=== PATIENT | male | born 1965 | race Caucasian/White ===

== ENCOUNTER 2017-01-23 07:35 | Emergency (ER) | payer OTHER ==
[~2017-01-23] VITALS: Ht 167.6 cm; Wt 118.2 kg
[~2017-01-23 07:35] MED LIST: ADV250 IH; ALBU8HFA IH; APIX2.5T PO; CITA20TA9 PO; FAMO20 PO; HYDR25TA PO; LISI-662 PO; METF500T4 PO; METO-325 PO; MONT10TA21 PO; OMEP20 PO; SERT50TA12 PO; SIMV20 PO; SOTA80 PO; TRAM50TA4 PO
[2017-01-23] MEDS ORDERED: HYDROCODONE/ACETAMINOPHEN 5-325 MG TABLET PO ONE (08:30)
[2017-01-23] MEDS ORDERED: IBUPROFEN 800 MG TABLET PO ONE (08:30)
[2017-01-23 09:24] VITALS: BP 123/54
== END 2017-01-23 09:24 | disposition home or self-care (01) ==
LOC: EMS 07:36
DX: M54.31 Sciatica, right side (principal); E11.9 Type 2 diabetes mellitus without complications; I10 Essential (primary) hypertension; J45.909 Unspecified asthma, uncomplicated
CPT/HCPCS: 82962; 99283

== ENCOUNTER 2017-04-26 04:58 | Emergency (ER) | payer OTHER ==
[~2017-04-26] VITALS: Ht 167.6 cm; Wt 143.0 kg
[~2017-04-26 04:58] MED LIST changes: +SIMV-260 PO; -SIMV20 PO
[2017-04-26] MEDS ORDERED: IBUP-1547 PO (05:03)
[2017-04-26] MEDS ORDERED: BUDE10.2 IH (05:03)
[2017-04-26] MEDS ORDERED: GABA-531 PO (05:03)
[2017-04-26] MEDS ORDERED: APIX5TAB PO (05:03)
[2017-04-26] MEDS ORDERED: LISI-662 PO (05:03)
[2017-04-26] MEDS ORDERED: SUCR1TAB PO (05:03)
[2017-04-26] MEDS ORDERED: ESCI20TA PO (05:03)
[2017-04-26 05:12] LABS: GLUCOSE,POINT OF CARE 161 MG/DL (70-110)
[2017-04-26] MEDS ORDERED: OxyCODONE HCL/ACETAMINOPHEN 5-325 MG TABLET PO ONE (06:30)
[2017-04-26 06:37] VITALS: BP 142/95
== END 2017-04-26 06:41 | disposition home or self-care (01) ==
LOC: EMS 04:59
DX: Z76.0 Encounter for issue of repeat prescription (principal); M17.12 Unilateral primary osteoarthritis, left knee; I10 Essential (primary) hypertension; E11.9 Type 2 diabetes mellitus without complications; E78.00 Pure hypercholesterolemia, unspecified; J45.909 Unspecified asthma, uncomplicated; I48.91 Unspecified atrial fibrillation
CPT/HCPCS: 82962; 99283

== ENCOUNTER 2017-07-01 08:01 | Emergency (ER) | payer OTHER ==
[~2017-07-01] VITALS: Ht 167.6 cm; Wt 131.8 kg
[~2017-07-01 08:01] MED LIST changes: -APIX2.5T PO; +APIX5TAB PO; +BUDE10.2 IH; -CITA20TA9 PO; +ESCI20TA PO; +GABA-531 PO; -HYDR25TA PO; +IBUP-1547 PO; -OMEP20 PO; +SUCR1TAB PO; -TRAM50TA4 PO
[2017-07-01 08:13] LABS: GLUCOSE,POINT OF CARE 186 MG/DL (70-110)
[2017-07-01] MEDS ORDERED: KETOROLAC TROMETHAMINE 60 MG/2 ML VIAL IM ONE (10:00)
[2017-07-01 10:29] LABS: APPEARANCE,URINE CLEAR (CLEAR); GLUCOSE, URINE (UA) NEGATIVE (NEGATIVE); KETONES,URINE NEGATIVE (NEGATIVE); LEUKOCYTE ESTERASE ,URINE NEGATIVE (NEGATIVE); OCCULT BLOOD,URINE NEGATIVE (NEGATIVE); PROTEIN,URINE NEGATIVE (NEGATIVE)
[2017-07-01 10:36] LABS: RBC,URINE None Seen /HPF (0-2); SQUAMOUS EPITHELIAL CELL,UR Few /LPF (None Seen); WBC,URINE 0-2 /HPF (0-5)
[2017-07-01 11:34] VITALS: BP 121/94
== END 2017-07-01 12:01 | disposition home or self-care (01) ==
LOC: EMS 08:02
DX: S80.12XA Contusion of left lower leg, initial encounter (principal); M54.6 Pain in thoracic spine; M54.5 Low back pain; I48.91 Unspecified atrial fibrillation; J45.909 Unspecified asthma, uncomplicated; E11.9 Type 2 diabetes mellitus without complications; E78.00 Pure hypercholesterolemia, unspecified; I10 Essential (primary) hypertension; Z87.891 Personal history of nicotine dependence; X58.XXXA Exposure to other specified factors, initial encounter; Y93.89 Activity, other specified; Y92.89 Other specified places as the place of occurrence of the external cause; Y99.8 Other external cause status
CPT/HCPCS: 71010; 81001; 82962; 96372; 99285; J1885

== ENCOUNTER 2017-08-22 13:42 | Emergency (ER) | payer OTHER ==
[~2017-08-22] VITALS: Ht 167.6 cm; Wt 141.8 kg
[~2017-08-22 13:42] MED LIST changes: -IBUP-1547 PO; +IBUP-2071 PO; -METO-325 PO; +METO-558 PO
[2017-08-22 13:57] VITALS: BP 127/71
[2017-08-22 14:02] LABS: GLUCOSE,POINT OF CARE 133 MG/DL (70-110)
[2017-08-22] MEDS ORDERED: ACETAMINOPHEN/CODEINE 300-30 MG TABLET PO ONE (14:15)
[2017-08-22] MEDS ORDERED: GENTAMICIN SULFATE 0.3% OPHTHALMIC SOLUTION 5 ML TP ONE (14:15)
== END 2017-08-22 15:44 | disposition home or self-care (01) ==
LOC: EMS 13:43
DX: H60.92 Unspecified otitis externa, left ear (principal); H69.92 Unspecified Eustachian tube disorder, left ear; E11.9 Type 2 diabetes mellitus without complications; I10 Essential (primary) hypertension; E78.00 Pure hypercholesterolemia, unspecified; J45.909 Unspecified asthma, uncomplicated; I48.91 Unspecified atrial fibrillation
CPT/HCPCS: 82962; 99283

== ENCOUNTER → 2018-02-20 | Outpatient (CLI) | payer OTHER ==
[~2018-02-20] VITALS: Ht 167.6 cm; Wt 130.0 kg
[~2018-02-20] MED LIST changes: +ASPI-556 PO; +CYCL5TAB PO; +DIGO-44 PO; +HYDR25TA PO; +MELO-107 PO
[2018-02-20 12:21] VITALS: BP 121/83
== END | disposition home or self-care (01) ==
LOC: SRCNTR 11:15
PROVIDERS: ATTEND Internal Medicine Clinical Cardiac Electrophysiology
DX: Z45.02 Encounter for adjustment and management of automatic implantable cardiac defibrillator (principal); I48.91 Unspecified atrial fibrillation; I11.0 Hypertensive heart disease with heart failure; I50.9 Heart failure, unspecified; E78.5 Hyperlipidemia, unspecified; E11.9 Type 2 diabetes mellitus without complications; E78.00 Pure hypercholesterolemia, unspecified; J45.909 Unspecified asthma, uncomplicated; F20.9 Schizophrenia, unspecified; Z79.01 Long term (current) use of anticoagulants; Z79.82 Long term (current) use of aspirin
CPT/HCPCS: G0463

== ENCOUNTER 2018-06-25 06:43 | Emergency (ER) | payer OTHER ==
[~2018-06-25] VITALS: Ht 167.6 cm; Wt 136.4 kg
[~2018-06-25 06:43] MED LIST changes: -ADV250 IH; -GABA-531 PO; -METF500T4 PO; +METF500T6 PO; -SIMV-260 PO; -SUCR1TAB PO
[2018-06-25 07:03] LABS: GLUCOSE,POINT OF CARE 197 MG/DL (70-110)
[2018-06-25] MEDS ORDERED: PANT40TA25 PO (07:17)
[2018-06-25] MEDS ORDERED: ARIP5TAB8 PO (07:17)
[2018-06-25] MEDS ORDERED: GABA-531 PO (07:17)
[2018-06-25] MEDS ORDERED: OXYC-530 PO (07:17)
[2018-06-25] MEDS ORDERED: SIMV-260 PO (07:17)
[2018-06-25] MEDS ORDERED: COLC0.6T67 PO (07:17)
[2018-06-25] MEDS ORDERED: CEFU250T87 PO (07:17)
[2018-06-25] MEDS ORDERED: IPRATROPIUM BROMIDE 0.5 MG/2.5 ML NEB SOLUTION NEB ONE (08:00)
[2018-06-25] MEDS ORDERED: ALBUTEROL SULFATE 5 MG/ML 20 ML NEB SOLN [BULK] NEB ONE (08:00)
[2018-06-25] MEDS ORDERED: PredniSONE 20 MG TABLET PO ONE (08:00)
[2018-06-25 08:10] LABS: BASOPHILS % (AUTO) 1.5 % (0.0-2.0); EOSINOPHILS % (AUTO) 0.9 % (1.0-6.0); HEMATOCRIT 35.8 % (41-53); HEMOGLOBIN 11.8 g/dL (13.5-17.5); MEAN CORPUSCULAR HEMOGLOBIN 28.8 pg (26.0-34.0); MEAN CORPUSCULAR HGB CONC 32.9 G/dL (31.0-37.0); MEAN CORPUSCULAR VOLUME 87 fL (80-100); MONOCYTES # (AUTO) 0.7 K/uL (0.1-1.0); MONOCYTES % (AUTO) 7.3 % (2.0-9.0); NEUTROPHILS # (AUTO) 6.5 K/uL (1.8-7.7); NEUTROPHILS % (AUTO) 69.3 % (40.0-70.0); PLATELET COUNT (AUTO) 258 K/uL (150-450); RED BLOOD CELL COUNT(AUTO) 4.09 MIL/uL (4.50-5.90); RED CELL DISTRIBUTION WIDTH 14.3 % (11.5-14.5)
[2018-06-25 08:21] LABS: ANION GAP 3 mmol/L (8-16); CALCIUM, TOTAL 8.9 mg/dL (8.8-10.5); CARBON DIOXIDE 33 mmol/L (22-29); CHLORIDE 102 mmol/L (98-107); CREATININE 0.75 mg/dL (0.60-1.30); GLOMERULAR FILTR. RATE CALC > 60 mL/min (>60); GLUCOSE,RANDOM 156 mg/dL (70-110); POTASSIUM 3.9 mmol/L (3.5-5.1); SODIUM SERUM 138 mmol/L (136-145); UREA NITROGEN, BLOOD 17 mg/dL (7-18)
[2018-06-25 08:26] LABS: ALANINE AMINOTRANSFERASE 17 U/L (12-78); ALBUMIN 3.4 g/dL (3.4-5.0); ALKALINE PHOSPHATASE 55 U/L (46-116); ASPARTATE AMINOTRANSFERASE 24 U/L (15-37); BILIRUBIN,TOTAL 0.4 mg/dL (0.1-1.0); CREATINE KINASE, TOTAL 39 U/L (39-308); TOTAL PROTEIN, SERUM 6.4 g/dL (6.4-8.2)
[2018-06-25 08:38] LABS: B-TYPE NATRIURETIC PEPTIDE 75 pg/mL (0-100)
[2018-06-25 09:49] VITALS: BP 114/78
== END 2018-06-25 09:53 | disposition home or self-care (01) ==
LOC: EMS 06:44
DX: J45.909 Unspecified asthma, uncomplicated (principal); R10.31 Right lower quadrant pain; R10.32 Left lower quadrant pain; I48.91 Unspecified atrial fibrillation; E11.9 Type 2 diabetes mellitus without complications; I51.9 Heart disease, unspecified; E78.00 Pure hypercholesterolemia, unspecified; F12.90 Cannabis use, unspecified, uncomplicated; F17.210 Nicotine dependence, cigarettes, uncomplicated; F20.9 Schizophrenia, unspecified; E66.01 Morbid (severe) obesity due to excess calories; Z79.82 Long term (current) use of aspirin; Z79.899 Other long term (current) drug therapy; Z79.84 Long term (current) use of oral hypoglycemic drugs; Z68.42 Body mass index [BMI] 45.0-49.9, adult
CPT/HCPCS: 36415; 71045; 80053; 82550; 82962; 83880; 84484; 85025; 93005; 94644; 99285; 99406; J7512; J7611

== ENCOUNTER 2018-06-25 14:09 | Inpatient (IN) | payer MEDICAID, OTHER ==
[~2018-06-25] VITALS: Ht 167.6 cm; Wt 153.8 kg
[~2018-06-25 14:09] MED LIST changes: +ARIP5TAB8 PO; +CEFU250T87 PO; +COLC0.6T67 PO; +GABA-531 PO; +OXYC-530 PO; +PANT40TA25 PO; +SIMV-260 PO
[2018-06-25 14:24] LABS: GLUCOSE,POINT OF CARE 231 MG/DL (70-110)
[2018-06-25 16:23] LABS: BASOPHILS % (AUTO) 0.7 % (0.0-2.0); EOSINOPHILS % (AUTO) 0.1 % (1.0-6.0); HEMATOCRIT 38.2 % (41-53); HEMOGLOBIN 12.4 g/dL (13.5-17.5); LYMPHOCYTES # (AUTO) 0.9 K/uL (1.0-4.8); LYMPHOCYTES % (AUTO) 8.4 % (22.0-44.0); MEAN CORPUSCULAR HGB CONC 32.4 G/dL (31.0-37.0); MEAN CORPUSCULAR VOLUME 87 fL (80-100); MONOCYTES # (AUTO) 0.4 K/uL (0.1-1.0); MONOCYTES % (AUTO) 3.7 % (2.0-9.0); NEUTROPHILS # (AUTO) 8.9 K/uL (1.8-7.7); PLATELET COUNT (AUTO) 292 K/uL (150-450); RED BLOOD CELL COUNT(AUTO) 4.42 MIL/uL (4.50-5.90); RED CELL DISTRIBUTION WIDTH 14.2 % (11.5-14.5)
[2018-06-25 16:25] LABS: NEUTROPHILS % (AUTO) 87.1 % (40.0-70.0)
[2018-06-25 16:33] LABS: ANION GAP 6 mmol/L (8-16); CALCIUM, TOTAL 9.2 mg/dL (8.8-10.5); CARBON DIOXIDE 32 mmol/L (22-29); CHLORIDE 100 mmol/L (98-107); CREATININE 0.86 mg/dL (0.60-1.30); GLOMERULAR FILTR. RATE CALC > 60 mL/min (>60); GLUCOSE,RANDOM 207 mg/dL (70-110); POTASSIUM 4.4 mmol/L (3.5-5.1); SODIUM SERUM 138 mmol/L (136-145); UREA NITROGEN, BLOOD 18 mg/dL (7-18)
[2018-06-25 16:39] LABS: ALANINE AMINOTRANSFERASE 19 U/L (12-78); ALBUMIN 3.7 g/dL (3.4-5.0); ALKALINE PHOSPHATASE 56 U/L (46-116); ASPARTATE AMINOTRANSFERASE 26 U/L (15-37); BILIRUBIN,TOTAL 0.5 mg/dL (0.1-1.0); TOTAL PROTEIN, SERUM 7.1 g/dL (6.4-8.2)
[2018-06-25] MEDS ORDERED: HALOPERIDOL 5 MG TABLET PO PRN (18:00)
[2018-06-25] MEDS ORDERED: ZOLPIDEM TARTRATE 10 MG TABLET PO PRN (18:00)
[2018-06-25 19:05] LABS: AMPHET/METH SCREEN,URINE NEGATIVE (NEGATIVE); BARBITURATE SCREEN, URINE NEGATIVE (NEGATIVE); BENZODIAZEPINES SCREEN,URINE NEGATIVE (NEGATIVE); CANNABINOID SCREEN,URINE POSITIVE (NEGATIVE); COCAINE SCREEN,URINE NEGATIVE (NEGATIVE); METHADONE SCREEN, URINE NEGATIVE (NEGATIVE); OPIATE SCREEN,URINE NEGATIVE (NEGATIVE)
[2018-06-25 19:07] LABS: PHENCYCLIDINE SCREEN,URINE NEGATIVE (NEGATIVE)
[2018-06-25 19:24] LABS: CHOL/HDL RATIO 5.3 (4.2-7.3); CHOLESTEROL 147 mg/dL (131-200); HDL CHOLESTEROL 28 mg/dL (40-60); LDL CHOL (CALC.) 96 mg/dL (0-130); TRIGLYCERIDES 116 mg/dL (15-150)
[2018-06-25 20:12] VITALS: BP 140/70
[2018-06-25] MEDS ORDERED: MAG HYDROX/AL HYDROX/SIMETH ES 30 ML SUSPENSION UDCUP PO PRN (21:00)
[2018-06-25] MEDS ORDERED: BACITRACIN 28.4 GM OINTMENT TP PRN (21:00)
[2018-06-25] MEDS ORDERED: MAGNESIUM HYDROXIDE SUSPENSION 30 ML UDCUP PO PRN (21:00)
[2018-06-25] MEDS ORDERED: LOPERAMIDE HCL 2 MG CAPSULE PO PRN (21:00)
[2018-06-25] MEDS ORDERED: CloNIDine HCL 0.1 MG TABLET PO PRN (21:00)
[2018-06-25] MEDS ORDERED: PETROLATUM,WHITE 71 GM JELLY TP PRN (21:00)
[2018-06-25] MEDS ORDERED: ACETAMINOPHEN 325 MG TABLET PO PRN (21:00)
[2018-06-25] MEDS ORDERED: ONDANSETRON HCL 4 MG TABLET PO PRN (21:00)
[2018-06-25] MEDS ORDERED: DEXTROSE 50%-WATER 25 GM/50 ML SYRINGE IVP PRN (21:00)
[2018-06-25] MEDS ORDERED: BENZOCAINE/MENTHOL LOZENGE MM PRN (21:00)
[2018-06-25] MEDS: SIMVASTATIN 20 MG TABLET PO SCH (22:06)
[2018-06-25] MEDS: INSULIN LISPRO 100 UNITS/ML SQ PRN (22:12)
[2018-06-25 22:18] LABS: GLUCOMETER DEV NAME(LOC) 3EI C; GLUCOSE,POINT OF CARE 172 MG/DL (70-110)
[2018-06-25 22:46] VITALS: BP 139/70
[2018-06-25] MEDS: IBUPROFEN 600 MG TABLET PO PRN (22:46)
[2018-06-25] MEDS: LORazepam 2 MG TABLET PO PRN (23:55)
[2018-06-26 05:34] LABS: GLUCOMETER DEV NAME(LOC) 3EI C; GLUCOSE,POINT OF CARE 133 MG/DL (70-110)
[2018-06-26] MEDS: MELOXICAM 7.5 MG TABLET PO SCH (06:51)
[2018-06-26] MEDS: MetFORMIN HCL 500 MG TABLET PO SCH ×2 (06:51→17:28)
[2018-06-26] MEDS ORDERED: DOCUSATE SODIUM 100 MG CAPSULE PO SCH (09:00)
[2018-06-26] MEDS: LISINOPRIL 20 MG TABLET PO SCH (09:18)
[2018-06-26] MEDS: ARIPiprazole 5 MG TABLET PO SCH (09:18)
[2018-06-26] MEDS: MONTELUKAST SODIUM 10 MG TABLET PO SCH (09:18)
[2018-06-26] MEDS: HYDROCHLOROTHIAZIDE 25 MG TABLET PO SCH (09:19)
[2018-06-26] MEDS: PANTOPRAZOLE SODIUM 40 MG DR TABLET PO SCH ×2 (09:19→16:28)
[2018-06-26] MEDS: ASPIRIN 81 MG CHEWABLE TABLET PO SCH (09:19)
[2018-06-26] MEDS: COLCHICINE 0.6 MG TABLET PO SCH ×2 (09:20→16:27)
[2018-06-26] MEDS: FAMOTIDINE 20 MG TABLET PO SCH ×2 (09:20→16:27)
[2018-06-26] MEDS: APIXABAN 5 MG TABLET PO SCH ×2 (09:20→16:27)
[2018-06-26] MEDS: SOTALOL HCL 80 MG TABLET PO SCH ×2 (09:21→16:28)
[2018-06-26 09:23] VITALS: BP 118/76
[2018-06-26] MEDS: IBUPROFEN 600 MG TABLET PO PRN ×2 (09:23→23:46)
[2018-06-26] MEDS: BUDESONIDE/FORMOTEROL FUMARATE 160-4.5 MCG/PUFF 6.9 GM INHALER IH SCH ×2 (10:25→16:27)
[2018-06-26 11:34] LABS: GLUCOMETER DEV NAME(LOC) 3EI C; GLUCOSE,POINT OF CARE 119 MG/DL (70-110)
[2018-06-26 16:48] LABS: GLUCOMETER DEV NAME(LOC) 3EI C; GLUCOSE,POINT OF CARE 179 MG/DL (70-110)
[2018-06-26] MEDS: INSULIN LISPRO 100 UNITS/ML SQ PRN ×2 (17:14→21:57)
[2018-06-26 20:42] VITALS: BP 140/70
[2018-06-26] MEDS: SIMVASTATIN 20 MG TABLET PO SCH (21:49)
[2018-06-26 22:08] LABS: GLUCOMETER DEV NAME(LOC) 3EI C; GLUCOSE,POINT OF CARE 146 MG/DL (70-110)
[2018-06-26 23:46] VITALS: BP 134/85
[2018-06-26] MEDS: LORazepam 2 MG TABLET PO PRN (23:46)
[2018-06-27 05:39] LABS: GLUCOMETER DEV NAME(LOC) 3EI C; GLUCOSE,POINT OF CARE 158 MG/DL (70-110)
[2018-06-27] MEDS: MELOXICAM 7.5 MG TABLET PO SCH (06:52)
[2018-06-27] MEDS: MetFORMIN HCL 500 MG TABLET PO SCH (06:52)
[2018-06-27] MEDS: INSULIN LISPRO 100 UNITS/ML SQ PRN (07:26)
[2018-06-27] MEDS: ARIPiprazole 5 MG TABLET PO SCH (09:27)
[2018-06-27] MEDS: HYDROCHLOROTHIAZIDE 25 MG TABLET PO SCH (09:27)
[2018-06-27] MEDS: MONTELUKAST SODIUM 10 MG TABLET PO SCH (09:28)
[2018-06-27] MEDS: ASPIRIN 81 MG CHEWABLE TABLET PO SCH (09:28)
[2018-06-27] MEDS: LISINOPRIL 20 MG TABLET PO SCH (09:28)
[2018-06-27] MEDS: SOTALOL HCL 80 MG TABLET PO SCH (09:29)
[2018-06-27] MEDS: PANTOPRAZOLE SODIUM 40 MG DR TABLET PO SCH (09:29)
[2018-06-27] MEDS: COLCHICINE 0.6 MG TABLET PO SCH (09:30)
[2018-06-27] MEDS: APIXABAN 5 MG TABLET PO SCH (09:30)
[2018-06-27] MEDS: FAMOTIDINE 20 MG TABLET PO SCH (09:30)
[2018-06-27] MEDS: BUDESONIDE/FORMOTEROL FUMARATE 160-4.5 MCG/PUFF 6.9 GM INHALER IH SCH (09:34)
[2018-06-27 09:58] VITALS: BP 128/77
[2018-06-27] MEDS: IBUPROFEN 600 MG TABLET PO PRN (09:58)
[2018-06-27] MEDS ORDERED: ASPI-1182 PO (10:37)
[2018-06-27] MEDS ORDERED: PANT40TA25 PO (10:53)
[2018-06-27 11:44] LABS: GLUCOMETER DEV NAME(LOC) 3EI C; GLUCOSE,POINT OF CARE 140 MG/DL (70-110)
== END 2018-06-27 12:30 | disposition home or self-care (01) | DRG 750 ==
LOC: EMS 14:10 → 3EI 18:34
PROVIDERS: ADMIT Psychiatry & Neurology Psychiatry; ATTEND Psychiatry & Neurology Psychiatry
DX: F25.9 Schizoaffective disorder, unspecified (principal); Z68.43 Body mass index [BMI] 50.0-59.9, adult; I10 Essential (primary) hypertension; I48.91 Unspecified atrial fibrillation; J45.909 Unspecified asthma, uncomplicated; E78.00 Pure hypercholesterolemia, unspecified; G89.29 Other chronic pain; M25.569 Pain in unspecified knee; E11.9 Type 2 diabetes mellitus without complications; F12.90 Cannabis use, unspecified, uncomplicated; I25.10 Atherosclerotic heart disease of native coronary artery without angina pectoris; E78.5 Hyperlipidemia, unspecified; K21.9 Gastro-esophageal reflux disease without esophagitis; F41.9 Anxiety disorder, unspecified; B19.20 Unspecified viral hepatitis C without hepatic coma; F17.200 Nicotine dependence, unspecified, uncomplicated; J42 Unspecified chronic bronchitis; K42.9 Umbilical hernia without obstruction or gangrene; G47.00 Insomnia, unspecified; F32.9 Major depressive disorder, single episode, unspecified; E66.9 Obesity, unspecified; Z56.0 Unemployment, unspecified; Z79.01 Long term (current) use of anticoagulants; Z79.899 Other long term (current) drug therapy
CPT/HCPCS: 87081; 99285; G0480

== ENCOUNTER 2021-04-17 16:02 | Inpatient (IN) | payer MEDICAID, OTHER ==
[~2021-04-17] VITALS: Ht 160 cm; Wt 135.0 kg
[~2021-04-17 16:02] MED LIST changes: -ALBU8HFA IH; +ARIP5TAB37 PO; -ARIP5TAB8 PO; +ASPI-1444 PO; -ASPI-556 PO; -CEFU250T87 PO; -COLC0.6T67 PO; +COLC0.6T73 PO; -CYCL5TAB PO; -DIGO-44 PO; -ESCI20TA PO; -GABA-531 PO; -HYDR25TA PO; +HYDR25TA2 PO; -IBUP-2071 PO; -LISI-662 PO; +LISI-894 PO; +METF-960 PO; -METF500T6 PO; -METO-558 PO; +MONT-35 PO; -MONT10TA21 PO; -OXYC-530 PO; +PANT-31 PO; -PANT40TA25 PO; -SERT50TA12 PO
[2021-04-17] MEDS ORDERED: LIDOCAINE 5% TRANSDERMAL PATCH TD ONE (16:45)
[2021-04-17] MEDS ORDERED: ACETAMINOPHEN 325 MG TABLET PO ONE (16:45)
[2021-04-17 17:25] LABS: BASOPHILS % (AUTO) 0.5 % (0.0-2.0); EOSINOPHILS % (AUTO) 1.7 % (1.0-6.0); HEMATOCRIT 44.4 % (41-53); HEMOGLOBIN 14.3 g/dL (13.5-17.5); LYMPHOCYTES # (AUTO) 1.2 K/uL (1.0-4.8); LYMPHOCYTES % (AUTO) 14.5 % (22.0-44.0); MEAN CORPUSCULAR HEMOGLOBIN 27.9 pg (26.0-34.0); MEAN CORPUSCULAR HGB CONC 32.2 G/dL (31.0-37.0); MEAN CORPUSCULAR VOLUME 87 fL (80-100); MONOCYTES # (AUTO) 0.7 K/uL (0.1-1.0); MONOCYTES % (AUTO) 7.9 % (2.0-9.0); NEUTROPHILS # (AUTO) 6.3 K/uL (1.8-7.7); NEUTROPHILS % (AUTO) 75.4 % (40.0-70.0); PLATELET COUNT (AUTO) 261 K/uL (150-450); RED BLOOD CELL COUNT(AUTO) 5.11 MIL/uL (4.50-5.90); RED CELL DISTRIBUTION WIDTH 13.6 % (11.5-14.5)
[2021-04-17] MEDS ORDERED: HALOPERIDOL 5 MG TABLET PO ONE (17:30)
[2021-04-17 17:34] LABS: ANION GAP 5 mmol/L (8-16); CALCIUM, TOTAL 8.5 mg/dL (8.8-10.5); CARBON DIOXIDE 33 mmol/L (22-29); CHLORIDE 103 mmol/L (98-107); CREATININE 0.74 mg/dL (0.60-1.30); GLOMERULAR FILTR. RATE CALC > 60 mL/min (>60); GLUCOSE,RANDOM 102 mg/dL (70-110); POTASSIUM 3.9 mmol/L (3.5-5.1); SODIUM SERUM 141 mmol/L (136-145); UREA NITROGEN, BLOOD 16 mg/dL (7-18)
[2021-04-17 17:40] LABS: ALANINE AMINOTRANSFERASE 11 U/L (12-78); ALBUMIN 3.6 g/dL (3.4-5.0); ALKALINE PHOSPHATASE 90 U/L (46-116); ASPARTATE AMINOTRANSFERASE 16 U/L (15-37); BILIRUBIN,TOTAL 0.5 mg/dL (0.1-1.0); TOTAL PROTEIN, SERUM 7.3 g/dL (6.4-8.2)
[2021-04-17 18:25] LABS: COVID AG,FIA SOURCE NASOPHARYNGEAL
[2021-04-17] MEDS ORDERED: 0.9% SODIUM CHLORIDE 10 ML SYRINGE IVP PRN (19:00)
[2021-04-17] MEDS ORDERED: ONDANSETRON HCL 4 MG/2 ML VIAL IVP PRN ×2 (19:00→19:15)
[2021-04-17] MEDS ORDERED: ACETAMINOPHEN 325 MG TABLET PO PRN (19:00)
[2021-04-17] MEDS ORDERED: INSULIN LISPRO 100 UNITS/ML SQ PRN (19:30)
[2021-04-17] MEDS ORDERED: DEXTROSE 50%-WATER 25 GM/50 ML SYRINGE IVP PRN (19:30)
[2021-04-17 19:55] LABS: HEMOGLOBIN A1C 6.6 % (3.8-5.6)
[2021-04-17 20:03] LABS: THYROID STIMULATING HORMONE 1.83 uIU/mL (0.36-3.74)
[2021-04-17 20:09] VITALS: BP 128/53
[2021-04-17 21:02] LABS: GLUCOMETER DEV NAME(LOC) 6N.1; GLUCOSE,POINT OF CARE 107 MG/DL (70-110)
[2021-04-18 04:25] VITALS: BP 110/52
[2021-04-18 07:23] LABS: GLUCOMETER DEV NAME(LOC) 6S.1; GLUCOSE,POINT OF CARE 126 MG/DL (70-110)
[2021-04-18 08:18] VITALS: BP 112/68
[2021-04-18] MEDS: SOTALOL HCL 80 MG TABLET PO SCH ×2 (08:54→21:00)
[2021-04-18] MEDS: PANTOPRAZOLE SODIUM 40 MG DR TABLET PO SCH ×2 (08:55→20:59)
[2021-04-18] MEDS: ARIPiprazole 5 MG TABLET PO SCH (08:55)
[2021-04-18] MEDS: ASPIRIN 81 MG DR TABLET PO SCH (08:55)
[2021-04-18] MEDS: LISINOPRIL 20 MG TABLET PO SCH (08:56)
[2021-04-18] MEDS: MONTELUKAST SODIUM 10 MG TABLET PO SCH (08:56)
[2021-04-18] MEDS: APIXABAN 5 MG TABLET PO SCH ×2 (08:57→21:00)
[2021-04-18] MEDS: COLCHICINE 0.6 MG TABLET PO SCH ×2 (08:58→21:00)
[2021-04-18] MEDS: HYDROCHLOROTHIAZIDE 25 MG TABLET PO SCH (08:59)
[2021-04-18] MEDS: BUDESONIDE/FORMOTEROL FUMARATE 160-4.5 MCG/PUFF 10.2 GM INHALER IH SCH ×2 (08:59→20:59)
[2021-04-18] MEDS ORDERED: ENOXAPARIN SODIUM 40 MG/0.4 ML PF SYRINGE SQ SCH (09:00)
[2021-04-18] MEDS: FAMOTIDINE 20 MG TABLET PO SCH ×2 (09:41→21:00)
[2021-04-18] MEDS: ACETAMINOPHEN 325 MG TABLET PO PRN ×2 (09:42→15:24)
[2021-04-18] MEDS ORDERED: LORazepam 2 MG TABLET PO PRN (10:00)
[2021-04-18] MEDS ORDERED: HALOPERIDOL 5 MG TABLET PO PRN (10:00)
[2021-04-18] MEDS: RisperiDONE 2 MG TABLET PO SCH ×2 (11:12→21:00)
[2021-04-18 13:43] LABS: GLUCOMETER DEV NAME(LOC) 6S.1; GLUCOSE,POINT OF CARE 112 MG/DL (70-110)
[2021-04-18 18:24] LABS: AMPHET/METH SCREEN,URINE POSITIVE (NEGATIVE); BARBITURATE SCREEN, URINE NEGATIVE (NEGATIVE); BENZODIAZEPINES SCREEN,URINE NEGATIVE (NEGATIVE); CANNABINOID SCREEN,URINE POSITIVE (NEGATIVE); COCAINE SCREEN,URINE NEGATIVE (NEGATIVE); METHADONE SCREEN, URINE NEGATIVE (NEGATIVE); OPIATE SCREEN,URINE NEGATIVE (NEGATIVE); PHENCYCLIDINE SCREEN,URINE NEGATIVE (NEGATIVE)
[2021-04-18 19:22] VITALS: BP 116/87
[2021-04-18] MEDS: SIMVASTATIN 20 MG TABLET PO SCH (21:00)
[2021-04-18 22:30] LABS: GLUCOMETER DEV NAME(LOC) 6N.1; GLUCOSE,POINT OF CARE 173 MG/DL (70-110)
[2021-04-19 05:30] VITALS: BP 124/77
[2021-04-19 06:26] LABS: GLUCOMETER DEV NAME(LOC) 6N.1; GLUCOSE,POINT OF CARE 111 MG/DL (70-110)
[2021-04-19 07:35] VITALS: BP 135/86
[2021-04-19] MEDS: ACETAMINOPHEN 325 MG TABLET PO PRN ×2 (08:00→20:12)
[2021-04-19] MEDS: BUDESONIDE/FORMOTEROL FUMARATE 160-4.5 MCG/PUFF 10.2 GM INHALER IH SCH ×2 (08:00→20:11)
[2021-04-19] MEDS: ASPIRIN 81 MG DR TABLET PO SCH (08:01)
[2021-04-19] MEDS: ARIPiprazole 5 MG TABLET PO SCH (08:01)
[2021-04-19] MEDS: SOTALOL HCL 80 MG TABLET PO SCH ×2 (08:01→20:09)
[2021-04-19] MEDS: MONTELUKAST SODIUM 10 MG TABLET PO SCH (08:01)
[2021-04-19] MEDS: COLCHICINE 0.6 MG TABLET PO SCH ×2 (08:02→20:10)
[2021-04-19] MEDS: FAMOTIDINE 20 MG TABLET PO SCH ×2 (08:02→20:11)
[2021-04-19] MEDS: RisperiDONE 2 MG TABLET PO SCH ×2 (08:02→20:10)
[2021-04-19] MEDS: APIXABAN 5 MG TABLET PO SCH ×2 (08:02→20:11)
[2021-04-19] MEDS: PANTOPRAZOLE SODIUM 40 MG DR TABLET PO SCH ×2 (08:02→20:11)
[2021-04-19] MEDS: LISINOPRIL 20 MG TABLET PO SCH (08:02)
[2021-04-19] MEDS: HYDROCHLOROTHIAZIDE 25 MG TABLET PO SCH (08:04)
[2021-04-19 12:46] LABS: GLUCOMETER DEV NAME(LOC) 6N.1; GLUCOSE,POINT OF CARE 132 MG/DL (70-110)
[2021-04-19 18:11] LABS: GLUCOMETER DEV NAME(LOC) 6N.1; GLUCOSE,POINT OF CARE 102 MG/DL (70-110)
[2021-04-19] MEDS: SIMVASTATIN 20 MG TABLET PO SCH (20:11)
[2021-04-19 20:40] VITALS: BP 120/61
[2021-04-19 23:48] LABS: GLUCOMETER DEV NAME(LOC) 6S.1; GLUCOSE,POINT OF CARE 126 MG/DL (70-110)
[2021-04-20 00:32] VITALS: BP 113/64
[2021-04-20 05:25] LABS: GLUCOMETER DEV NAME(LOC) 6N.1; GLUCOSE,POINT OF CARE 108 MG/DL (70-110)
[2021-04-20 05:30] VITALS: BP 117/70
[2021-04-20 07:58] VITALS: BP 111/70
[2021-04-20] MEDS: SOTALOL HCL 80 MG TABLET PO SCH (08:17)
[2021-04-20] MEDS: MONTELUKAST SODIUM 10 MG TABLET PO SCH (08:17)
[2021-04-20] MEDS: RisperiDONE 2 MG TABLET PO SCH (08:17)
[2021-04-20] MEDS: APIXABAN 5 MG TABLET PO SCH (08:19)
[2021-04-20] MEDS: ASPIRIN 81 MG DR TABLET PO SCH (08:19)
[2021-04-20] MEDS: ARIPiprazole 5 MG TABLET PO SCH (08:19)
[2021-04-20] MEDS: COLCHICINE 0.6 MG TABLET PO SCH (08:19)
[2021-04-20] MEDS: FAMOTIDINE 20 MG TABLET PO SCH (08:20)
[2021-04-20] MEDS: HYDROCHLOROTHIAZIDE 25 MG TABLET PO SCH (08:20)
[2021-04-20] MEDS: PANTOPRAZOLE SODIUM 40 MG DR TABLET PO SCH (08:21)
[2021-04-20] MEDS: LISINOPRIL 20 MG TABLET PO SCH (08:21)
[2021-04-20] MEDS: BUDESONIDE/FORMOTEROL FUMARATE 160-4.5 MCG/PUFF 10.2 GM INHALER IH SCH (08:23)
[2021-04-20] MEDS ORDERED: RISP2TAB45 PO (12:35)
[2021-04-20 13:09] LABS: GLUCOMETER DEV NAME(LOC) 6N.1; GLUCOSE,POINT OF CARE 111 MG/DL (70-110)
== END 2021-04-20 13:56 | DRG 885 ==
LOC: EMS 16:02 → 6S 18:53
PROVIDERS: ADMIT Internal Medicine; ATTEND Internal Medicine
DX: F20.9 Schizophrenia, unspecified (principal); R45.851 Suicidal ideations; I48.20 Chronic atrial fibrillation, unspecified; Z68.43 Body mass index [BMI] 50.0-59.9, adult; E11.9 Type 2 diabetes mellitus without complications; E66.01 Morbid (severe) obesity due to excess calories; E78.5 Hyperlipidemia, unspecified; J45.909 Unspecified asthma, uncomplicated; E78.00 Pure hypercholesterolemia, unspecified; Z83.3 Family history of diabetes mellitus; F12.90 Cannabis use, unspecified, uncomplicated; B19.20 Unspecified viral hepatitis C without hepatic coma; I25.10 Atherosclerotic heart disease of native coronary artery without angina pectoris; Z91.5 Personal history of self-harm; F17.210 Nicotine dependence, cigarettes, uncomplicated; Z79.01 Long term (current) use of anticoagulants; Z79.899 Other long term (current) drug therapy; I10 Essential (primary) hypertension; Z20.822 Contact with and (suspected) exposure to COVID-19
CPT/HCPCS: 71045; 80053; 82962; 83036; 84443; 84484; 85025; 93005; 99285; G0480; 36415-L1; 36415-TC

== ENCOUNTER 2022-11-06 18:28 | Inpatient (IN) | payer OTHER ==
[~2022-11-06] VITALS: Ht 167.6 cm; Wt 121.3 kg
[~2022-11-06 18:28] MED LIST changes: -MELO-107 PO; +MELO-381 PO; +METF-1211 PO; -METF-960 PO; +RISP2TAB45 PO
[2022-11-06 21:31] LABS: BASOPHILS % (AUTO) 0.6 % (0.0-2.0); EOSINOPHILS % (AUTO) 1.2 % (1.0-6.0); HEMATOCRIT 48.4 % (41-53); HEMOGLOBIN 15.5 g/dL (13.5-17.5); LYMPHOCYTES # (AUTO) 1.4 K/uL (1.0-4.8); LYMPHOCYTES % (AUTO) 19.5 % (22.0-44.0); MEAN CORPUSCULAR HGB CONC 31.9 G/dL (31.0-37.0); MEAN CORPUSCULAR VOLUME 88 fL (80-100); MONOCYTES # (AUTO) 0.6 K/uL (0.1-1.0); MONOCYTES % (AUTO) 7.6 % (2.0-9.0); NEUTROPHILS # (AUTO) 5.2 K/uL (1.8-7.7); NEUTROPHILS % (AUTO) 71.1 % (40.0-70.0); PLATELET COUNT (AUTO) 324 K/uL (150-450); RED BLOOD CELL COUNT(AUTO) 5.53 MIL/uL (4.50-5.90); RED CELL DISTRIBUTION WIDTH 14.3 % (11.5-14.5)
[2022-11-06 21:36] LABS: GLUCOSE,POINT OF CARE 118 MG/DL (70-110)
[2022-11-06 21:44] LABS: ANION GAP 3 mmol/L (8-16); CALCIUM, TOTAL 9.1 mg/dL (8.8-10.5); CARBON DIOXIDE 32 mmol/L (22-29); CHLORIDE 103 mmol/L (98-107); GLUCOSE,RANDOM 105 mg/dL (70-110); POTASSIUM 4.3 mmol/L (3.5-5.1); SODIUM SERUM 138 mmol/L (136-145); UREA NITROGEN, BLOOD 19 mg/dL (7-18)
[2022-11-06 21:47] LABS: GLOMERULAR FILTR. RATE CALC > 60 mL/min (>60)
[2022-11-06 21:49] LABS: B-TYPE NATRIURETIC PEPTIDE 17 pg/mL (0-100)
[2022-11-06 21:52] LABS: PROTHROMBIN TIME 10.9 SEC (9.4-11.6)
[2022-11-06 22:08] LABS: ALANINE AMINOTRANSFERASE 17 U/L (12-78); ALBUMIN 3.8 g/dL (3.4-5.0); ALKALINE PHOSPHATASE 63 U/L (46-116); ASPARTATE AMINOTRANSFERASE 25 U/L (15-37); BILIRUBIN,TOTAL 0.4 mg/dL (0.1-1.0); CREATINE KINASE, TOTAL ONLY 138 U/L (39-308); TOTAL PROTEIN, SERUM 7.3 g/dL (6.4-8.2)
[2022-11-07] MEDS ORDERED: HydrALAZINE HCL 20 MG/ML VIAL IVP PRN
[2022-11-07] MEDS ORDERED: IPRATROPIUM BROMIDE 0.5 MG/2.5 ML NEB SOLUTION NEB PRN
[2022-11-07] MEDS ORDERED: ALBUTEROL SULFATE 2.5 MG/0.5 ML NEB SOLUTION NEB PRN
[2022-11-07] MEDS ORDERED: ONDANSETRON HCL 4 MG/2 ML VIAL IVP PRN
[2022-11-07] MEDS ORDERED: ACETAMINOPHEN 325 MG TABLET PO PRN
[2022-11-07 00:47] LABS: COVID AG,FIA SOURCE NASOPHARYNGEAL
[2022-11-07 02:37] LABS: APPEARANCE,URINE CLEAR (CLEAR); BILIRUBIN,URINE NEGATIVE (NEGATIVE); GLUCOSE, URINE (UA) NEGATIVE (NEGATIVE); KETONES,URINE NEGATIVE (NEGATIVE); LEUKOCYTE ESTERASE ,URINE SMALL (NEGATIVE); NITRATE,URINE NEGATIVE (NEGATIVE); OCCULT BLOOD,URINE NEGATIVE (NEGATIVE); PROTEIN,URINE TRACE mg/dL (NEGATIVE); SPECIFIC GRAVITIY, URINE 1.029 (1.003-1.030); UROBILINOGEN,URINE <=1.0 mg/dL (<=1.0)
[2022-11-07 02:51] LABS: RBC,URINE 0-2 /HPF (0-2)
[2022-11-07 02:52] LABS: BACTERIA,URINE Few /HPF (None Seen); SQUAMOUS EPITHELIAL CELL,UR Few /LPF (None Seen)
[2022-11-07 08:34] VITALS: BP 126/83
[2022-11-07] MEDS: PANTOPRAZOLE SODIUM 40 MG DR TABLET PO SCH ×2 (09:06→20:16)
[2022-11-07] MEDS: ARIPiprazole 5 MG TABLET PO SCH (09:06)
[2022-11-07] MEDS: FAMOTIDINE 20 MG TABLET PO SCH ×2 (09:07→20:17)
[2022-11-07] MEDS: MetFORMIN HCL 500 MG TABLET PO SCH ×2 (09:07→17:49)
[2022-11-07] MEDS: LISINOPRIL 20 MG TABLET PO SCH (09:07)
[2022-11-07] MEDS: HYDROCHLOROTHIAZIDE 25 MG TABLET PO SCH (09:08)
[2022-11-07] MEDS: ASPIRIN 81 MG DR TABLET PO SCH (09:08)
[2022-11-07] MEDS: MONTELUKAST SODIUM 10 MG TABLET PO SCH (09:08)
[2022-11-07] MEDS: BUDESONIDE/FORMOTEROL FUMARATE 160-4.5 MCG/PUFF 10.2 GM INHALER IH SCH ×2 (09:09→20:47)
[2022-11-07] MEDS: APIXABAN 5 MG TABLET PO SCH ×2 (09:10→20:17)
[2022-11-07] MEDS: COLCHICINE 0.6 MG TABLET PO SCH ×2 (09:10→20:16)
[2022-11-07] MEDS: RisperiDONE 2 MG TABLET PO SCH ×2 (09:10→20:16)
[2022-11-07] MEDS: SOTALOL HCL 80 MG TABLET PO SCH ×2 (09:11→20:16)
[2022-11-07] MEDS ORDERED: INFLUENZA VIRUS VACCINE QVS 2022-23 (6MO+)/PF 60 MCG/0.5 ML SYRINGE IM. ONE (10:30)
[2022-11-07] MEDS ORDERED: PNEUMOCOCCAL VACCINE POLYVALENT 0.5 ML VIAL [PPSV23] IM. ONE (10:30)
[2022-11-07 15:45] VITALS: BP 111/77
[2022-11-07 20:11] LABS: GLUCOMETER DEV NAME(LOC) 6N.1; GLUCOSE,POINT OF CARE 136 MG/DL (70-110)
[2022-11-07] MEDS: SIMVASTATIN 20 MG TABLET PO SCH (20:16)
[2022-11-07 20:33] VITALS: BP 114/73
[2022-11-08] MEDS ORDERED: HEPARIN SODIUM,PORCINE 5,000 UNITS/ML VIAL SQ SCH
[2022-11-08 05:36] VITALS: BP 103/62
[2022-11-08 08:03] VITALS: BP 120/60
[2022-11-08] MEDS: ARIPiprazole 5 MG TABLET PO SCH (08:13)
[2022-11-08] MEDS: FAMOTIDINE 20 MG TABLET PO SCH ×2 (08:13→22:50)
[2022-11-08] MEDS: MetFORMIN HCL 500 MG TABLET PO SCH ×2 (08:13→18:53)
[2022-11-08] MEDS: LISINOPRIL 20 MG TABLET PO SCH (08:13)
[2022-11-08] MEDS: ASPIRIN 81 MG DR TABLET PO SCH (08:13)
[2022-11-08] MEDS: PANTOPRAZOLE SODIUM 40 MG DR TABLET PO SCH ×2 (08:13→22:50)
[2022-11-08] MEDS: MONTELUKAST SODIUM 10 MG TABLET PO SCH (08:14)
[2022-11-08] MEDS: HYDROCHLOROTHIAZIDE 25 MG TABLET PO SCH (08:14)
[2022-11-08] MEDS: RisperiDONE 2 MG TABLET PO SCH ×2 (08:14→22:51)
[2022-11-08] MEDS: COLCHICINE 0.6 MG TABLET PO SCH ×2 (08:15→22:51)
[2022-11-08] MEDS: SOTALOL HCL 80 MG TABLET PO SCH ×2 (08:15→22:51)
[2022-11-08] MEDS: BUDESONIDE/FORMOTEROL FUMARATE 160-4.5 MCG/PUFF 10.2 GM INHALER IH SCH (08:16)
[2022-11-08] MEDS: APIXABAN 5 MG TABLET PO SCH ×2 (08:16→22:50)
[2022-11-08 11:00] LABS: HEMOGLOBIN A1C 6.8 % (3.8-5.6)
[2022-11-08 11:10] LABS: ANION GAP 6 mmol/L (8-16); CALCIUM, TOTAL 9.1 mg/dL (8.8-10.5); CARBON DIOXIDE 28 mmol/L (22-29); CHLORIDE 100 mmol/L (98-107); CHOL/HDL RATIO 5.9 (4.2-7.3); CHOLESTEROL 153 mg/dL (131-200); CREATININE 0.91 mg/dL (0.60-1.30); GLUCOSE,RANDOM 115 mg/dL (70-110); HDL CHOLESTEROL 26 mg/dL (40-60); LDL CHOL (CALC.) 82 mg/dL (0-130); POTASSIUM 4.1 mmol/L (3.5-5.1); SODIUM SERUM 134 mmol/L (136-145); TRIGLYCERIDES 227 mg/dL (15-150); UREA NITROGEN, BLOOD 20 mg/dL (7-18)
[2022-11-08 11:15] LABS: GLOMERULAR FILTR. RATE CALC > 60 mL/min (>60)
[2022-11-08 15:30] VITALS: BP 121/76
[2022-11-08 20:05] VITALS: BP 103/65
[2022-11-08] MEDS: SIMVASTATIN 20 MG TABLET PO SCH (22:50)
[2022-11-09 06:08] VITALS: BP 101/56
[2022-11-09 08:58] VITALS: BP 126/70
[2022-11-09] MEDS: ASPIRIN 81 MG DR TABLET PO SCH (09:08)
[2022-11-09] MEDS: PANTOPRAZOLE SODIUM 40 MG DR TABLET PO SCH ×2 (09:08→20:44)
[2022-11-09] MEDS: COLCHICINE 0.6 MG TABLET PO SCH ×2 (09:09→20:41)
[2022-11-09] MEDS: HYDROCHLOROTHIAZIDE 25 MG TABLET PO SCH (09:09)
[2022-11-09] MEDS: SOTALOL HCL 80 MG TABLET PO SCH ×2 (09:10→20:42)
[2022-11-09] MEDS: RisperiDONE 2 MG TABLET PO SCH ×2 (09:10→20:42)
[2022-11-09] MEDS: MONTELUKAST SODIUM 10 MG TABLET PO SCH (09:10)
[2022-11-09] MEDS: APIXABAN 5 MG TABLET PO SCH ×2 (09:10→20:41)
[2022-11-09] MEDS: MetFORMIN HCL 500 MG TABLET PO SCH ×2 (09:10→17:18)
[2022-11-09] MEDS: BUDESONIDE/FORMOTEROL FUMARATE 160-4.5 MCG/PUFF 10.2 GM INHALER IH SCH ×2 (09:11→21:00)
[2022-11-09] MEDS: LISINOPRIL 20 MG TABLET PO SCH (09:11)
[2022-11-09] MEDS: FAMOTIDINE 20 MG TABLET PO SCH ×2 (09:11→20:42)
[2022-11-09] MEDS: ARIPiprazole 5 MG TABLET PO SCH (10:36)
[2022-11-09 10:46] LABS: BASOPHILS % (AUTO) 0.6 % (0.0-2.0); EOSINOPHILS % (AUTO) 0.4 % (1.0-6.0); HEMATOCRIT 49.8 % (41-53); HEMOGLOBIN 15.9 g/dL (13.5-17.5); LYMPHOCYTES # (AUTO) 1.1 K/uL (1.0-4.8); LYMPHOCYTES % (AUTO) 18.1 % (22.0-44.0); MEAN CORPUSCULAR HEMOGLOBIN 27.7 pg (26.0-34.0); MEAN CORPUSCULAR HGB CONC 31.9 G/dL (31.0-37.0); MEAN CORPUSCULAR VOLUME 87 fL (80-100); MONOCYTES # (AUTO) 0.6 K/uL (0.1-1.0); MONOCYTES % (AUTO) 10.3 % (2.0-9.0); NEUTROPHILS # (AUTO) 4.3 K/uL (1.8-7.7); NEUTROPHILS % (AUTO) 70.6 % (40.0-70.0); PLATELET COUNT (AUTO) 293 K/uL (150-450); RED BLOOD CELL COUNT(AUTO) 5.73 MIL/uL (4.50-5.90); RED CELL DISTRIBUTION WIDTH 13.9 % (11.5-14.5)
[2022-11-09] MEDS ORDERED: PERFLUTREN PROTEIN-A MICROSPHERES 0.22 MG/ML 3 ML VIAL IVP ONE (11:30)
[2022-11-09 12:58] VITALS: BP 90/55
[2022-11-09 16:58] VITALS: BP 106/64
[2022-11-09 20:38] VITALS: BP 108/68
[2022-11-09] MEDS: SIMVASTATIN 20 MG TABLET PO SCH (20:41)
[2022-11-10 07:54] VITALS: BP 120/80
[2022-11-10] MEDS: LISINOPRIL 20 MG TABLET PO SCH (09:02)
[2022-11-10] MEDS: FAMOTIDINE 20 MG TABLET PO SCH ×2 (09:02→21:29)
[2022-11-10] MEDS: PANTOPRAZOLE SODIUM 40 MG DR TABLET PO SCH ×2 (09:02→21:27)
[2022-11-10] MEDS: MONTELUKAST SODIUM 10 MG TABLET PO SCH (09:03)
[2022-11-10] MEDS: RisperiDONE 2 MG TABLET PO SCH ×2 (09:03→21:27)
[2022-11-10] MEDS: ARIPiprazole 5 MG TABLET PO SCH (09:03)
[2022-11-10] MEDS: HYDROCHLOROTHIAZIDE 25 MG TABLET PO SCH (09:03)
[2022-11-10] MEDS: COLCHICINE 0.6 MG TABLET PO SCH ×2 (09:03→21:29)
[2022-11-10] MEDS: APIXABAN 5 MG TABLET PO SCH ×2 (09:03→21:27)
[2022-11-10] MEDS: ASPIRIN 81 MG DR TABLET PO SCH (09:03)
[2022-11-10] MEDS: MetFORMIN HCL 500 MG TABLET PO SCH ×2 (09:03→17:16)
[2022-11-10] MEDS: SOTALOL HCL 80 MG TABLET PO SCH ×2 (09:03→21:27)
[2022-11-10] MEDS: BUDESONIDE/FORMOTEROL FUMARATE 160-4.5 MCG/PUFF 10.2 GM INHALER IH SCH ×2 (09:06→21:30)
[2022-11-10 10:42] LABS: BASOPHILS % (AUTO) 0.4 % (0.0-2.0); HEMATOCRIT 49.4 % (41-53); HEMOGLOBIN 15.8 g/dL (13.5-17.5); LYMPHOCYTES # (AUTO) 1.2 K/uL (1.0-4.8); LYMPHOCYTES % (AUTO) 19.2 % (22.0-44.0); MEAN CORPUSCULAR HEMOGLOBIN 27.7 pg (26.0-34.0); MEAN CORPUSCULAR VOLUME 87 fL (80-100); MONOCYTES # (AUTO) 0.5 K/uL (0.1-1.0); MONOCYTES % (AUTO) 7.6 % (2.0-9.0); NEUTROPHILS # (AUTO) 4.5 K/uL (1.8-7.7); NEUTROPHILS % (AUTO) 71.8 % (40.0-70.0); PLATELET COUNT (AUTO) 280 K/uL (150-450); RED CELL DISTRIBUTION WIDTH 14.1 % (11.5-14.5)
[2022-11-10 12:32] VITALS: BP 104/72
[2022-11-10 15:35] VITALS: BP 121/74
[2022-11-10 20:07] VITALS: BP 106/68
[2022-11-10] MEDS: SIMVASTATIN 20 MG TABLET PO SCH (21:28)
[2022-11-11 00:20] VITALS: BP 117/73
[2022-11-11 05:33] VITALS: BP 102/74
== END 2022-11-11 07:30 | DRG 74 ==
LOC: EMS 18:28 → 6S 11-07 05:00 → 5S 11-08 16:20
PROVIDERS: ADMIT Internal Medicine; ATTEND Internal Medicine
DX: G90.8 Other disorders of autonomic nervous system (principal); I50.22 Chronic systolic (congestive) heart failure; Z68.41 Body mass index [BMI] 40.0-44.9, adult; F20.9 Schizophrenia, unspecified; I95.9 Hypotension, unspecified; E66.01 Morbid (severe) obesity due to excess calories; Z20.822 Contact with and (suspected) exposure to COVID-19; I48.91 Unspecified atrial fibrillation; J45.909 Unspecified asthma, uncomplicated; E11.9 Type 2 diabetes mellitus without complications; E78.00 Pure hypercholesterolemia, unspecified; K42.9 Umbilical hernia without obstruction or gangrene; G89.29 Other chronic pain; F17.210 Nicotine dependence, cigarettes, uncomplicated; R42 Dizziness and giddiness; I11.0 Hypertensive heart disease with heart failure; Z95.0 Presence of cardiac pacemaker; Z83.3 Family history of diabetes mellitus; Z79.01 Long term (current) use of anticoagulants; Z79.51 Long term (current) use of inhaled steroids; Z79.82 Long term (current) use of aspirin; I25.10 Atherosclerotic heart disease of native coronary artery without angina pectoris
CPT/HCPCS: 70450; 71045; 80048; 80053; 80061; 81001; 82550; 82962; 83036; 83880; 84484; 85025; 85610; 85730; 87086; 87186; 93005; 97162; 99285; C8929; Q9967; 36415-L1; 36415-TC; C8928

== ENCOUNTER 2022-12-02 19:20 | Inpatient (IN) | payer OTHER ==
[~2022-12-02] VITALS: Ht 162.6 cm; Wt 125.0 kg
[~2022-12-02 19:20] MED LIST changes: -HYDR25TA2 PO
[2022-12-02] MEDS ORDERED: IPRATROPIUM BROMIDE 0.5 MG/2.5 ML NEB SOLUTION NEB ONE (22:15)
[2022-12-02] MEDS ORDERED: MethylPREDNISolone SOD SUCC 125 MG/2 ML VIAL IVP ONE (22:15)
[2022-12-02] MEDS ORDERED: ALBUTEROL SULFATE 2.5 MG/0.5 ML NEB SOLUTION NEB ONE (22:15)
[2022-12-02 22:21] LABS: GLUCOMETER DEV NAME(LOC) ERT.5; GLUCOSE,POINT OF CARE 189 MG/DL (70-110)
[2022-12-02 22:39] LABS: BASOPHILS % (AUTO) 0.5 % (0.0-2.0); HEMATOCRIT 41.7 % (41-53); HEMOGLOBIN 13.6 g/dL (13.5-17.5); LYMPHOCYTES # (AUTO) 1.9 K/uL (1.0-4.8); LYMPHOCYTES % (AUTO) 21.8 % (22.0-44.0); MEAN CORPUSCULAR HGB CONC 32.7 G/dL (31.0-37.0); MEAN CORPUSCULAR VOLUME 86 fL (80-100); MONOCYTES # (AUTO) 0.8 K/uL (0.1-1.0); MONOCYTES % (AUTO) 9.2 % (2.0-9.0); NEUTROPHILS # (AUTO) 5.8 K/uL (1.8-7.7); NEUTROPHILS % (AUTO) 67.5 % (40.0-70.0); PLATELET COUNT (AUTO) 330 K/uL (150-450); RED BLOOD CELL COUNT(AUTO) 4.86 MIL/uL (4.50-5.90); RED CELL DISTRIBUTION WIDTH 13.9 % (11.5-14.5)
[2022-12-02 22:51] LABS: ANION GAP 3 mmol/L (8-16); CALCIUM, TOTAL 8.5 mg/dL (8.8-10.5); CARBON DIOXIDE 35 mmol/L (22-29); CHLORIDE 101 mmol/L (98-107); GLOMERULAR FILTR. RATE CALC > 60 mL/min (>60); GLUCOSE,RANDOM 164 mg/dL (70-110); POTASSIUM 4.1 mmol/L (3.5-5.1); SODIUM SERUM 139 mmol/L (136-145); UREA NITROGEN, BLOOD 17 mg/dL (7-18)
[2022-12-02 22:52] LABS: PROTHROMBIN TIME 10.6 SEC (9.4-11.6)
[2022-12-02 22:53] LABS: COVID AG,FIA SOURCE NASOPHARYNGEAL
[2022-12-02 23:01] LABS: ALANINE AMINOTRANSFERASE 11 U/L (12-78); ALBUMIN 3.3 g/dL (3.4-5.0); ALKALINE PHOSPHATASE 98 U/L (46-116); ASPARTATE AMINOTRANSFERASE 10 U/L (15-37); BILIRUBIN,TOTAL 0.3 mg/dL (0.1-1.0); CREATINE KINASE, TOTAL ONLY 55 U/L (39-308); PHOSPHORUS 3.2 mg/dL (2.5-4.9); TOTAL PROTEIN, SERUM 6.9 g/dL (6.4-8.2)
[2022-12-02 23:08] LABS: B-TYPE NATRIURETIC PEPTIDE 31 pg/mL (0-100)
[2022-12-02] MEDS ORDERED: MAGNESIUM SULFATE 4 GM/WATER 100 ML IV PRN (23:15)
[2022-12-02] MEDS ORDERED: MAGNESIUM SULFATE 2 GM/WATER 50 ML IV PRN (23:15)
[2022-12-02] MEDS ORDERED: MAGNESIUM SULFATE 1 GM in DEXTROSE 5%-WATER 50 ML IV ONE (23:15)
[2022-12-02] MEDS ORDERED: ONDANSETRON HCL 4 MG/2 ML VIAL IVP PRN (23:15)
[2022-12-02] MEDS ORDERED: MAGNESIUM OXIDE 400 MG TABLET PO PRN (23:15)
[2022-12-02] MEDS ORDERED: DEXTROSE 50%-WATER 25 GM/50 ML SYRINGE IVP PRN (23:15)
[2022-12-02 23:16] LABS: INFLUENZA TYPE A NEGATIVE FOR TYPE A (NEGATIVE); INFLUENZA TYPE B POSITIVE FOR TYPE B (NEGATIVE)
[2022-12-02] MEDS ORDERED: OSELTAMIVIR PHOSPHATE 75 MG CAPSULE PO ONE (23:45)
[2022-12-03 03:49] LABS: APPEARANCE,URINE CLEAR (CLEAR); BILIRUBIN,URINE NEGATIVE (NEGATIVE); GLUCOSE, URINE (UA) NEGATIVE (NEGATIVE); KETONES,URINE NEGATIVE (NEGATIVE); LEUKOCYTE ESTERASE ,URINE MODERATE (NEGATIVE); NITRATE,URINE NEGATIVE (NEGATIVE); OCCULT BLOOD,URINE NEGATIVE (NEGATIVE); PH,URINE 7.5 (5.0-8.0); PROTEIN,URINE NEGATIVE (NEGATIVE); SPECIFIC GRAVITIY, URINE 1.016 (1.003-1.030); UROBILINOGEN,URINE <=1.0 mg/dL (<=1.0)
[2022-12-03 04:18] LABS: BACTERIA,URINE None Seen /HPF (None Seen); RBC,URINE None Seen /HPF (0-2); SQUAMOUS EPITHELIAL CELL,UR Few /LPF (None Seen)
[2022-12-03] MEDS: MethylPREDNISolone SOD SUCC 125 MG/2 ML VIAL IVP SCH ×4 (06:15→17:18)
[2022-12-03] MEDS: IPRATROPIUM BROMIDE 0.5 MG/2.5 ML NEB SOLUTION NEB PRN ×2 (06:37→20:15)
[2022-12-03] MEDS: ALBUTEROL SULFATE 2.5 MG/0.5 ML NEB SOLUTION NEB PRN ×2 (06:37→20:15)
[2022-12-03] MEDS: OSELTAMIVIR PHOSPHATE 75 MG CAPSULE PO SCH (11:52)
[2022-12-03] MEDS: APIXABAN 5 MG TABLET PO SCH ×2 (11:52→20:30)
[2022-12-03] MEDS: FAMOTIDINE 20 MG TABLET PO SCH ×2 (11:52→20:30)
[2022-12-03] MEDS: DOCUSATE SODIUM 100 MG CAPSULE PO SCH ×2 (11:52→20:30)
[2022-12-03] MEDS: SOTALOL HCL 80 MG TABLET PO SCH ×2 (11:52→20:30)
[2022-12-03] MEDS: ACETAMINOPHEN 325 MG TABLET PO PRN ×2 (11:55→17:34)
[2022-12-03 12:00] VITALS: BP 135/52
[2022-12-03] MEDS: INSULIN LISPRO 100 UNITS/ML SQ PRN ×3 (12:03→20:35)
[2022-12-03 16:20] VITALS: BP 125/73
[2022-12-03] MEDS: MetFORMIN HCL 500 MG TABLET PO SCH (17:18)
[2022-12-03 18:06] LABS: GLUCOMETER DEV NAME(LOC) 5S.2B; GLUCOSE,POINT OF CARE 222 MG/DL (70-110)
[2022-12-03 18:07] LABS: GLUCOMETER DEV NAME(LOC) 5S.2B; GLUCOSE,POINT OF CARE 244 MG/DL (70-110)
[2022-12-03 20:01] VITALS: BP 100/69
[2022-12-03] MEDS: SIMVASTATIN 20 MG TABLET PO SCH (20:30)
[2022-12-03] MEDS: COLCHICINE 0.6 MG TABLET PO SCH (20:31)
[2022-12-03 21:16] LABS: GLUCOMETER DEV NAME(LOC) 5S.2B; GLUCOSE,POINT OF CARE 259 MG/DL (70-110)
[2022-12-04] MEDS: OSELTAMIVIR PHOSPHATE 75 MG CAPSULE PO SCH ×3 (00:01→21:26)
[2022-12-04 00:53] VITALS: BP 110/55
[2022-12-04] MEDS: MethylPREDNISolone SOD SUCC 125 MG/2 ML VIAL IVP SCH ×2 (01:57→06:26)
[2022-12-04] MEDS: ACETAMINOPHEN 325 MG TABLET PO PRN (02:02)
[2022-12-04] MEDS: INSULIN LISPRO 100 UNITS/ML SQ PRN ×4 (06:35→21:44)
[2022-12-04 06:52] VITALS: BP 112/70
[2022-12-04 08:31] VITALS: BP 136/77
[2022-12-04] MEDS: MetFORMIN HCL 500 MG TABLET PO SCH ×2 (09:18→17:44)
[2022-12-04] MEDS: COLCHICINE 0.6 MG TABLET PO SCH ×2 (09:19→21:27)
[2022-12-04] MEDS: ASPIRIN 81 MG DR TABLET PO SCH (09:19)
[2022-12-04] MEDS: FAMOTIDINE 20 MG TABLET PO SCH ×2 (09:19→21:29)
[2022-12-04] MEDS: DOCUSATE SODIUM 100 MG CAPSULE PO SCH ×2 (09:19→21:29)
[2022-12-04] MEDS: LISINOPRIL 20 MG TABLET PO SCH (09:19)
[2022-12-04] MEDS: MONTELUKAST SODIUM 10 MG TABLET PO SCH (09:19)
[2022-12-04] MEDS: SOTALOL HCL 80 MG TABLET PO SCH ×2 (09:20→21:28)
[2022-12-04] MEDS ORDERED: SODIUM CHLORIDE 0.9% 500 ML IV ONE (11:37)
[2022-12-04] MEDS: CefTRIAXone 1 GM/DEXTROSE 50 ML IV SCH (11:41)
[2022-12-04] MEDS: APIXABAN 5 MG TABLET PO SCH ×2 (11:41→21:25)
[2022-12-04 12:02] LABS: GLUCOMETER DEV NAME(LOC) 6N.2B; GLUCOSE,POINT OF CARE 244 MG/DL (70-110)
[2022-12-04 14:52] LABS: GLUCOMETER DEV NAME(LOC) 6N.1; GLUCOSE,POINT OF CARE 224 MG/DL (70-110)
[2022-12-04 15:56] VITALS: BP 119/62
[2022-12-04 20:01] LABS: GLUCOMETER DEV NAME(LOC) 6N.2B; GLUCOSE,POINT OF CARE 270 MG/DL (70-110)
[2022-12-04] MEDS ORDERED: MethylPREDNISolone SOD SUCC 125 MG/2 ML VIAL IVP SCH (21:00)
[2022-12-04] MEDS: SIMVASTATIN 20 MG TABLET PO SCH (21:28)
[2022-12-04 21:48] VITALS: BP 119/69
[2022-12-05] MEDS: ACETAMINOPHEN 325 MG TABLET PO PRN ×2 (01:58→06:44)
[2022-12-05] MEDS: ALBUTEROL SULFATE 2.5 MG/0.5 ML NEB SOLUTION NEB PRN (02:39)
[2022-12-05] MEDS: IPRATROPIUM BROMIDE 0.5 MG/2.5 ML NEB SOLUTION NEB PRN (02:39)
[2022-12-05] MEDS: INSULIN LISPRO 100 UNITS/ML SQ PRN ×2 (06:27→12:06)
[2022-12-05 07:43] VITALS: BP 140/93
[2022-12-05] MEDS: CefTRIAXone 1 GM/DEXTROSE 50 ML IV SCH (08:20)
[2022-12-05] MEDS: COLCHICINE 0.6 MG TABLET PO SCH (09:15)
[2022-12-05] MEDS: SOTALOL HCL 80 MG TABLET PO SCH (09:15)
[2022-12-05] MEDS: MONTELUKAST SODIUM 10 MG TABLET PO SCH (09:16)
[2022-12-05] MEDS: MetFORMIN HCL 500 MG TABLET PO SCH ×2 (09:16→18:00)
[2022-12-05] MEDS: ASPIRIN 81 MG DR TABLET PO SCH (09:16)
[2022-12-05] MEDS: OSELTAMIVIR PHOSPHATE 75 MG CAPSULE PO SCH (09:16)
[2022-12-05] MEDS: FAMOTIDINE 20 MG TABLET PO SCH (09:16)
[2022-12-05] MEDS: DOCUSATE SODIUM 100 MG CAPSULE PO SCH (09:17)
[2022-12-05] MEDS: LISINOPRIL 20 MG TABLET PO SCH (09:29)
[2022-12-05] MEDS: APIXABAN 5 MG TABLET PO SCH (09:29)
[2022-12-05] MEDS ORDERED: ACET-2247 PO (09:54)
[2022-12-05 10:46] LABS: GLUCOMETER DEV NAME(LOC) 6N.1; GLUCOSE,POINT OF CARE 258 MG/DL (70-110)
[2022-12-05 10:46] LABS: GLUCOMETER DEV NAME(LOC) 6N.1; GLUCOSE,POINT OF CARE 182 MG/DL (70-110)
[2022-12-05 13:31] LABS: GLUCOMETER DEV NAME(LOC) 6N.1; GLUCOSE,POINT OF CARE 158 MG/DL (70-110)
== END 2022-12-05 17:30 | DRG 189 ==
LOC: EMS 19:20 → 5S 12-03 04:00 → 6S 12-04 00:20
PROVIDERS: ADMIT Internal Medicine; ATTEND Internal Medicine
DX: J96.01 Acute respiratory failure with hypoxia (principal); J44.1 Chronic obstructive pulmonary disease with (acute) exacerbation; Z68.42 Body mass index [BMI] 45.0-49.9, adult; I48.20 Chronic atrial fibrillation, unspecified; J10.1 Influenza due to other identified influenza virus with other respiratory manifestations; E66.01 Morbid (severe) obesity due to excess calories; E11.9 Type 2 diabetes mellitus without complications; G47.30 Sleep apnea, unspecified; F20.9 Schizophrenia, unspecified; E78.00 Pure hypercholesterolemia, unspecified; I10 Essential (primary) hypertension; I25.10 Atherosclerotic heart disease of native coronary artery without angina pectoris; I49.5 Sick sinus syndrome; F17.210 Nicotine dependence, cigarettes, uncomplicated; Z83.3 Family history of diabetes mellitus; Z95.0 Presence of cardiac pacemaker
CPT/HCPCS: 71045; 80053; 81001; 82550; 82962; 83735; 83880; 84100; 84484; 85025; 85610; 85730; 87086; 87186; 87804; 93005; 94640; 99291; J0696; J2930; J3475; J7040; J7060; 36415-L1; 36415-TC; J7613

== ENCOUNTER 2025-05-25 12:17 | Emergency (ER) | payer MEDICARE, OTHER ==
[~2025-05-25] VITALS: Ht 167.6 cm; Wt 100.0 kg
[~2025-05-25 12:17] MED LIST changes: +ACET-2247 PO; +COLC-3 PO; -COLC0.6T73 PO; +MELO-107 PO; -MELO-381 PO; -PANT-31 PO; -SOTA80 PO; +SOTA80TA90 PO
[2025-05-25] MEDS ORDERED: LUMA42CA PO (12:47)
[2025-05-25 12:56] LABS: GLUCOMETER DEV NAME(LOC) ER.7; GLUCOSE,POINT OF CARE 130 MG/DL (70-110)
[2025-05-25 13:05] LABS: PLATELET COUNT (AUTO) 294 K/uL (150-450); RED BLOOD CELL COUNT(AUTO) 5.38 MIL/uL (4.50-5.90); RED CELL DISTRIBUTION WIDTH 14.7 % (11.5-14.5); WHITE BLOOD COUNT (AUTO) 7.1 K/uL (4.5-11.0)
[2025-05-25 13:23] LABS: CALCIUM, TOTAL 9.4 mg/dL (8.8-10.5); CREATININE 0.76 mg/dL (0.60-1.30); GLOMERULAR FILTR. RATE CALC > 60 mL/min (>60); GLUCOSE,RANDOM 128 mg/dL (70-110); SODIUM SERUM 140 mmol/L (136-145); UREA NITROGEN, BLOOD 11 mg/dL (7-18)
[2025-05-25 13:46] LABS: ASPARTATE AMINOTRANSFERASE 18.0 U/L (15-37); TOTAL PROTEIN, SERUM 7.2 g/dL (6.4-8.2)
[2025-05-25 14:07] LABS: TROPONIN I-HIGH SENSITIVITY 4 ng/L (<76)
[2025-05-25] MEDS ORDERED: IOHEXOL 350 MG/ML 100 ML VIAL ONE (14:54)
[2025-05-25] MEDS: ONDANSETRON HCL 4 MG/2 ML VIAL IVP ONE (14:56)
[2025-05-25] MEDS: IOHEXOL 9 MG/ML 500 ML BOTTLE PO ONE (14:56)
[2025-05-25] MEDS: MORPHINE SULFATE 4 MG/ML SYRINGE IVP ONE (14:57)
[2025-05-25 15:22] LABS: APPEARANCE,URINE CLEAR (CLEAR); GLUCOSE, URINE (UA) NEGATIVE (NEGATIVE); LEUKOCYTE ESTERASE ,URINE NEGATIVE (NEGATIVE); NITRATE,URINE NEGATIVE (NEGATIVE); OCCULT BLOOD,URINE NEGATIVE (NEGATIVE); SPECIFIC GRAVITIY, URINE 1.009 (1.003-1.030)
[2025-05-25 18:11] LABS: GLUCOMETER DEV NAME(LOC) ERT.7; GLUCOSE,POINT OF CARE 99 MG/DL (70-110)
[2025-05-25 18:20] VITALS: BP 152/103; PULSE 76; RESP 20; TEMP 98.1; O2SAT 98
== END 2025-05-25 18:54 | disposition home or self-care (01) ==
LOC: EMS 12:18
DX: K42.9 Umbilical hernia without obstruction or gangrene (principal); R10.33 Periumbilical pain; E78.00 Pure hypercholesterolemia, unspecified; E11.9 Type 2 diabetes mellitus without complications; F20.9 Schizophrenia, unspecified; G89.29 Other chronic pain; I10 Essential (primary) hypertension; I48.91 Unspecified atrial fibrillation; J45.909 Unspecified asthma, uncomplicated; Z95.0 Presence of cardiac pacemaker; Z86.19 Personal history of other infectious and parasitic diseases; Z79.82 Long term (current) use of aspirin; Z79.01 Long term (current) use of anticoagulants; Z79.899 Other long term (current) drug therapy
CPT/HCPCS: 99285; 74177; 96374; 96375; 80048; 80076; 81003; 82962; 83690; 84484; 85025; 36415; 93005; Q9967 ×2; J2270; J2405